=== PATIENT | male | born 1995 | race Caucasian/White ===

== ENCOUNTER 2018-04-14 13:54 | Emergency (ER) | payer BC ==
[~2018-04-14] VITALS: Ht 177.8 cm; Wt 60.3 kg
[~2018-04-14 13:54] MED LIST: NO HOME MEDS
[2018-04-14] MEDS ORDERED: FIORICET 50-301 EAC1 PO (16:55)
[2018-04-14] MEDS ORDERED: TORADOL10 MG PO (16:55)
[2018-04-14] MEDS ORDERED: MEDROL DOSEPAK4 MG PO (16:55)
[2018-04-14 17:24] VITALS: BP 104/59
== END 2018-04-14 17:25 | disposition home or self-care (01) ==
LOC: EME 13:54
DX: G43.909 Migraine, unspecified, not intractable, without status migrainosus (principal)
CPT/HCPCS: 99281; 99284; J1100; J1200; J1885; J2405